=== PATIENT | female | born 1990 | race Hispanic/Latino ===

== ENCOUNTER 2021-08-03 18:16 | Emergency (ER) | payer OTHER ==
[~2021-08-03] VITALS: Ht 170.2 cm; Wt 64.4 kg
[~2021-08-03 18:16] MED LIST: LAMICTAL100 MG; PRENATAL FORMU1 EACH; ZOLOFT50 MG PO
[2021-08-03] MEDS ORDERED: SODIUM CHLORIDE 0.9% 1000ML 1,000 ML IV STA (19:26)
[2021-08-03] MEDS ORDERED: IOPAMIDOL 370 MG/ML 100 ML INFUS..BTL INJ ONE (19:31)
[2021-08-03] MEDS ORDERED: CEFTRIAXONE 1 GM VIAL ONE (20:35)
[2021-08-03] MEDS ORDERED: SODIUM CHLORIDE 0.9% 1000ML 1,000 ML ONE (20:37)
[2021-08-03] MEDS ORDERED: CEPHALEXIN500 MG PO (20:44)
[2021-08-03 21:05] VITALS: BP 114/74
== END 2021-08-03 21:10 | disposition home or self-care (01) ==
LOC: FSED 18:20
DX: R10.30 Lower abdominal pain, unspecified (principal); N39.0 Urinary tract infection, site not specified; R11.2 Nausea with vomiting, unspecified; J45.909 Unspecified asthma, uncomplicated; L30.9 Dermatitis, unspecified; F31.9 Bipolar disorder, unspecified
CPT/HCPCS: 74177; 76830; 80053; 81003; 85025; 93976; 99283; J0696; J7030; Q9967